=== PATIENT | female | born 1965 | race Caucasian/White ===

== ENCOUNTER → 2024-01-30 10:13 | Outpatient (REF) | payer OTHER, SELFPAY | LOC: RAD 10:13 | PROVIDERS: ATTENDING PHYSICIAN Internal Medicine; FAMILY PHYSICIAN Family Medicine | DX: R14.2 Eructation (principal); R63.4 Abnormal weight loss | CPT/HCPCS: 74246 ==

== ENCOUNTER → 2024-02-23 06:36 | Day surgery (SDC) | payer OTHER, SELFPAY | LOC: GI 06:36 | PROVIDERS: ATTENDING PHYSICIAN Internal Medicine; FAMILY PHYSICIAN Family Medicine | DX: K22.89 Other specified disease of esophagus (principal); K20.90 Esophagitis, unspecified without bleeding; K44.9 Diaphragmatic hernia without obstruction or gangrene; K31.89 Other diseases of stomach and duodenum; R10.13 Epigastric pain; R14.0 Abdominal distension (gaseous); R63.4 Abnormal weight loss | CPT/HCPCS: 43239; 88305; 88342 ==

== ENCOUNTER → 2024-03-20 07:15 | Outpatient (REF) | payer OTHER, SELFPAY | LOC: RAD 07:15 | PROVIDERS: ATTENDING PHYSICIAN Internal Medicine; FAMILY PHYSICIAN Family Medicine | DX: K55.1 Chronic vascular disorders of intestine (principal) | CPT/HCPCS: 76700; 93975 ==

== ENCOUNTER → 2024-04-24 08:48 | Outpatient (REF) | payer OTHER, SELFPAY | LOC: RAD 08:48 | PROVIDERS: ATTENDING PHYSICIAN Internal Medicine; FAMILY PHYSICIAN Family Medicine | DX: R93.89 Abnormal findings on diagnostic imaging of other specified body structures (principal); K55.1 Chronic vascular disorders of intestine; R63.4 Abnormal weight loss | CPT/HCPCS: 74174; Q9967 ==